=== PATIENT | female | born 2005 | race Caucasian/White ===

== ENCOUNTER 2025-01-12 01:52 | Emergency (ER) | payer BC ==
[2025-01-12] MEDS: Ondansetron 4 MG Tab.DIS PO ONE (02:14)
[2025-01-12] MEDS ORDERED: Sodium Chloride 0.9% 10 ML Syringe FLUSH PRN (02:17)
[2025-01-12 02:24] LABS: APPEARANCE,URINE CLEAR (CLEAR); GLUCOSE,URINE NEGATIVE (NEGATIVE); OCCULT BLOOD,URINE SMALL (NEGATIVE); PLATELET COUNT,PLT 342 10^3/uL (150-400); RED BLOOD CELL COUNT 4.51 x10^6/uL (4.00-5.50); WHITE BLOOD CELL COUNT,WBC 7.3 10^3/uL (4.0-11.0)
[2025-01-12 02:36] LABS: ALANINE AMINOTRANSFERASE,ALT 15 U/L (12-78); ASPARTATE AMNIOTRANSFERASE,AST 10 U/L (15-37); BILIRUBIN TOTAL 0.4 mg/dL (0.0-1.0); BLOOD UREA NITROGEN,BUN 17 mg/dL (7-18); CARBON DIOXIDE,CO2 25 mmol/L (21-32); CHLORIDE,CL 103 mEq/L (98-106); CREATININE 0.8 mg/dL (0.6-1.0); EST CRCL DRUG DOSING (CG) 92.79 mL/min; GLUCOSE RANDOM 91 mg/dL (75-99); POTASSIUM,K 3.9 mEq/L (3.5-5.0); PROTEIN TOTAL,TP 6.5 g/dL (6.4-8.2); SODIUM,NA 140 mEq/L (136-145)
[2025-01-12 02:41] LABS: ESTIMATED GFR 108 mL/min (>=60)
[2025-01-12 02:42] LABS: EOSINOPHILS PERCENT MAN 3 % (0-5); LYMPHOCYTES PERCENT MAN 52 % (21-55); MONOCYTES PERCENT MAN 5 % (2-12); REACTIVE LYMPHOCYTES FEW (NOT SEEN); SEG NEUTROPHILS PERCENT MAN 40 % (35-85); SQUAMOUS EPITHELIAL CELLS,UR FEW /HPF (NOT SEEN)
[2025-01-12 02:53] VITALS: BP 104/57; PULSE 85
[2025-01-12] MEDS: Iopamidol 755 Mg/ML 100 ML Bottle IVPUSH ONE (03:05)
[2025-01-12] MEDS: Ketorolac 30 MG/ML SDV IVPUSH ONE (03:38)
[2025-01-12] MEDS: Take Home: Acetaminophen/HYDROcodone 325-5 MG, 2 Tab Pack PO ONE (04:20)
== END 2025-01-12 04:25 | disposition home or self-care (01) ==
LOC: CC.ED 01:52
DX: K81.9 Cholecystitis, unspecified (principal); Z91.048 Other nonmedicinal substance allergy status; Z91.018 Allergy to other foods; Z91.040 Latex allergy status; Z79.899 Other long term (current) drug therapy
CPT/HCPCS: 36415; 74177; 80053; 81001; 81025; 83690; 85025; 86140; 96374; 96375; 99284; 99284-25; A9270-GY; J1171; J1885; J7030; Q9967